=== PATIENT | male | born 1990 | race Caucasian/White ===

== ENCOUNTER 2024-01-29 10:30 | Outpatient (CLI) | payer OTHER ==
[~2024-01-29 10:30] MED LIST: BACDS PO; CEPH-357 PO
== END 2024-01-29 23:59 | disposition home or self-care (01) ==
LOC: MRI 10:30
PROVIDERS: ATTEND Family Medicine
DX: M25.521 Pain in right elbow (principal)
CPT/HCPCS: 73221